=== PATIENT | female | born 1970 | race Caucasian/White ===

== ENCOUNTER 2020-10-10 11:42 | Emergency (ER) | payer MEDICAID ==
[~2020-10-10] VITALS: Ht 165.1 cm; Wt 58.0 kg
[2020-10-10 12:01] VITALS: BP 145/77
[2020-10-10] MEDS ORDERED: ibuprofen tablet 400 MG TABLET PO ONE (12:50)
[2020-10-10] MEDS ORDERED: ondansetron 4mg rapidly disintigrating tab PO ONE (12:50)
[2020-10-10] MEDS ORDERED: clindamycin 150mg capsule PO ONE (12:50)
[2020-10-10] MEDS ORDERED: ibuprofen 200mg tablet PO ONE (12:55)
[2020-10-10] MEDS ORDERED: TETanus/Pertussis (Acell)/Diphther VAC/PF (Tdap-Adult) 0.5ml syringe IMVAC ONE (12:55)
[2020-10-10] MEDS ORDERED: bacitracin 15gm ointment TP ONE (12:55)
[2020-10-10] MEDS ORDERED: CLIN150C8 PO (13:45)
== END 2020-10-10 13:59 | disposition home or self-care (01) ==
LOC: ER 11:43
DX: L60.0 Ingrowing nail (principal); M79.675 Pain in left toe(s); Z79.2 Long term (current) use of antibiotics
CPT/HCPCS: 11750; 99284